=== PATIENT | female | born 1995 | race African-American/Black ===

== ENCOUNTER 2019-07-18 22:54 | Observation (INO) | payer MEDICAID ==
[~2019-07-18] VITALS: Ht 175.3 cm; Wt 70.8 kg
[2019-07-18] MEDS ORDERED: PNV1TABL76 PO (23:47)
== END 2019-07-19 02:20 | disposition home or self-care (01) ==
LOC: 8 EST LDRP 22:54
PROVIDERS: ADMIT Obstetrics & Gynecology; ATTEND Obstetrics & Gynecology
DX: O9A.213 Injury, poisoning and certain other consequences of external causes complicating pregnancy, third trimester (principal); O62.9 Abnormality of forces of labor, unspecified; O26.893 Other specified pregnancy related conditions, third trimester; R10.9 Unspecified abdominal pain; Z3A.34 34 weeks gestation of pregnancy; W19.XXXA Unspecified fall, initial encounter; Y93.89 Activity, other specified; Y92.89 Other specified places as the place of occurrence of the external cause; Y99.8 Other external cause status
CPT/HCPCS: 76805; 76818; 99281; G0378